=== PATIENT | female | born 1950 | race African-American/Black ===

== ENCOUNTER 2021-07-31 12:58 | Outpatient (RCR) | payer MEDICARE, MEDICAID, SELFPAY ==
--- NOTE | 2021-07-31 13:57 | REHOPWC ---
SEATING EVALUATION NOTIFICATION re: Jackie Duncan : 1950 This is to notify provider that Jackie Duncan participated in a power mobility device evaluation today. Recommendations were made specific to patient's needs. Seating Assessment documentation has been completed for detailed information on required equipment. The mobility device provider for this case is [employer]. Please note that no further care plan will be developed on this account. [facility]. Please review, sign, date and return this discharge summary NIGEL. I have been updated about the patient's current status and I agree with discharge from the above service at this time. Referring Physician Date
== END 2021-08-01 09:30 | disposition home or self-care (01) ==
LOC: ANHPT 12:58
DX: I63.9 Cerebral infarction, unspecified (principal); M19.90 Unspecified osteoarthritis, unspecified site; Z99.3 Dependence on wheelchair
CPT/HCPCS: 97163